=== PATIENT | female | born 1950 | race Caucasian/White ===

== ENCOUNTER 2016-05-30 14:21 | Emergency (ER) | payer MEDICARE, OTHER ==
[2016-05-30 14:39] VITALS: BP 113/59
--- NOTE | 2016-05-30 15:07 | UC ---
Palpitation/Dysrhythmia HP - HPI Summary HPI Summary: The patient comes in today for: 1. Palpitations "my heart has been skipping beats," "I feel little weak and weary." She does not feel or think that her weakness and "weariness" is worse during the times that she feels her heart skip a beat. She states that her heartbeat will skip a beat and then go back to a normal regular beating. Onset: 1-2 weeks Palliative/provocative: When she is "up and busy" her skipped beats are "not as much." But, she wonders if she is just more mentally distracted at that time. Quality: skipping of heart Region: CVS Severity: 0/10 Time: "On and off all day." Associated symptoms: Previous evaluation: None. Treatment: None Heart disease or previous symptoms: None. She has a history of anxiety attacks. During her "skipped beats" she denies any near-syncope, chest pain, or shortness of breath. * - History of Current Complaint Chief Complaint: UCGeneralIllness Stated Complaint: IRREGULAR HEARTBEAT Time Seen by Provider: 05/30/16 14:59 Hx Obtained From: Patient Hx Last Menstrual Period: "years ago." ?: No - Allergy/Home Medications Allergies/Adverse Reactions: Allergies Allergy/AdvReac Type Severity Reaction Status Date / Time Cephalexin [From Keflex] Allergy Severe Headache Verified 05/30/16 14:40 Sulfa Drugs Allergy Severe Rash Verified 05/30/16 14:40 Tetracycline Allergy Severe Hives Verified 05/30/16 14:40 benadryl topical Allergy Severe Blisters Uncoded 05/30/16 14:40 PMH/Surg Hx/FS Hx/Imm Hx Previously Healthy: No - Restless leg syndrome, Night terrors, Endocrine History Of: Denies: Diabetes, Thyroid Disease, Hyperthyroidism, Hypothyroidism, Dyslipidemia Cardiovascular History Of: Denies: Cardiac Disorders, Hypertension, Pacemaker/ICD, Myocardial Infarction , Congestive Heart Failure, Atrial Fibrillation, Deep Vein Thrombosis, Bleeding Disorders Respiratory History Of: Denies: COPD, Asthma, Bronchitis, Pneumonia, Pulmonary Embolism GI/ History Of: Reports: Gall Bladder Disease - Cholecystectomy 2010, Kidney Stones - BILAT Denies: Gastroesophageal Reflux, Ulcer, Gastrointestinal Bleed, Diverticulitis, Renal Disease, Urosepsis Neurological History Of: Denies: TIA, CVA, Dementia, Seizures, Migraine Psychological History Of: Reports: Anxiety, Depression Denies: Bipolar Disorder, Schizophrenia, Post Traumatic Stress Disorder Cancer History Of: Denies: Lung Cancer, Colorectal Cancer, Breast Cancer, Prostate Cancer, Cervical Cancer Other History Of: Anticoagulant Therapy - She is on aspirin daily. Negative For: HIV, Hepatitis B, Hepatitis C - Surgical History Surgical History: Yes Surgery Procedure, Year, and Place: r shoulder reconstruction 40 years ago. hysterectomy 1999. cholecystectomy 5 years ago - Family History Known Family History: Positive: Cardiac Disease - Father of [place] 72., Hypertension Negative: Diabetes - Social History Occupation: Retired Alcohol Use: None Substance Use Type: None Smoking Status (MU): Current Every Day Smoker Type: Cigarettes Amount Used/How Often: 1/2 - 1PPD - Immunization History Most Recent Influenza Vaccination: 2015 Most Recent Tetanus Shot: Unknown Most Recent Pneumonia Vaccination: 2014 Review of Systems Constitutional: Negative Skin: Negative Eyes: Negative ENT: Negative Respiratory: Negative Cardiovascular: Negative Gastrointestinal: Negative Genitourinary: Negative All Other Systems Reviewed And Are Negative: Yes Physical Exam Triage Information Reviewed: Yes Appearance: Well-Appearing, No Pain Distress, Well-Nourished, Other: - She is anxious-appearing with furrowed brow and slight pressured speech. Vital Signs: Initial Vital Signs Temp 97.8 F 05/30/16 14:35 Pulse 79 05/30/16 14:35 Resp 20 05/30/16 14:35 BP 113/59 05/30/16 14:35 Pulse Ox 97 05/30/16 14:35 Vital Signs Reviewed: Yes Eyes: Positive: Conjunctiva Clear. Negative: Discharge ENT: Positive: Hearing grossly normal. Negative: Pharyngeal erythema, Nasal congestion, Nasal drainage, TM bulging, TM dull, TM red, Tonsillar swelling, Tonsillar exudate Dental: Negative: Gross Decay/Caries @, Dental Fracture @ Neck: Positive: Supple, Nontender, No Lymphadenopathy, Other: - No thyromegally or nodules.. Negative: Nuchal Rigidity Respiratory: Positive: Chest non-tender, Lungs clear, No respiratory distress, No accessory muscle use. Negative: Rhonchi, Wheezing Cardiovascular: Positive: RRR, No Murmur Abdomen Description: Positive: Nontender, No Organomegaly, Soft. Negative: Distended, Guarding Musculoskeletal: Positive: Strength Intact, ROM Intact, No Edema Neurological: Positive: Alert, Muscle Tone Normal Psychological: Negative: Age Appropriate Behavior, Consolable Skin: Negative: rashes, breakdown Diagnostics - Laboratory Diagnostic Studies Completed/Ordered: EKG: Rate: Rhythm: Ectopy: None. Acute changes: None Palpitations Course/Dx - Course Course Of Treatment: Patient was told that I found no obvious problems that may be causing her skipped beats. From her description of a premature beat and a compensatory pause, she was told that she probably is having isolated PVC's. She was told that having isolated PVC's don't necessarily mean that there is any heart problem such as CAD. But, they can be a sign of such. She was told that we can't make the distinction here at the urgent care--she is goign to have to have a cardiac work up. She was told that it is reassuring that she is not having the skipped beats along with chest pain, dypsnea or near-syncope. However, her age and smoking are definite risk factors for heart disease and for this reason, I'll be referring her to a leave manager for evaluation. - Differential Dx/Diagnosis Differential Diagnosis/HQI/PQRI: Panic Disorder, Other Provider Diagnoses: Isolated PVC's/palpitations. Discharge - Discharge Plan Condition: Stable Disposition: HOME Patient Education Materials: Palpitations (ED) Referrals: Peggy Santana MD [Primary Care Provider] - As Soon As Possible Leandro Eng MD [Medical Doctor] - As Soon As Possible (Please call Dr. Vinnie Eng's office as soon as you can for an evaluation as soon as you can for palpitations. If you get worse please go to the ER.) Additional Instructions: If you have a change in your skipped beats such as a run of them, or skipped beats along with chest pain, or shortness of breath, or feeling like you are going to faint or if your weariness or fatigue get worse with them, please go directly to the ER.
== END 2016-05-30 15:52 | disposition home or self-care (01) ==
LOC: UCEAST 14:21
DX: I49.3 Ventricular premature depolarization (principal); R00.2 Palpitations; Z79.82 Long term (current) use of aspirin; Z90.49 Acquired absence of other specified parts of digestive tract; Z88.1 Allergy status to other antibiotic agents; Z88.2 Allergy status to sulfonamides; F17.210 Nicotine dependence, cigarettes, uncomplicated
CPT/HCPCS: 93005; 99211; G0463

== ENCOUNTER 2018-08-14 19:07 | Emergency (ER) | payer MEDICARE ==
[2018-08-14 19:36] VITALS: BP 140/88
--- NOTE | 2018-08-14 20:00 | UC ---
Skin Complaint HPI - HPI Summary HPI Summary: NOTICED TICK ATTACHED TO HER RIGHT AC TODAY. THINKS IT MUST HAVE ATTACHED SOMETIME IN THE LAST 24 HOURS. - History of Current Complaint Chief Complaint: UCGeneralIllness Time Seen by Provider: 08/14/18 19:37 Stated Complaint: TICK Hx Obtained From: Patient Hx Last Menstrual Period: "years ago." Onset/Duration: Lasting Hours, Still Present Timing: Constant Onset Severity: Mild Current Severity: Mild Pain Intensity: 0 Pain Scale Used: 0-10 Numeric Location: Discrete - RIGHT AC FOSSA Character: Redness Aggravating Factor(s): Touch Alleviating Factor(s): Nothing Associated Signs & Symptoms: Positive: Negative Related History: Insect Bite/Sting - Allergy/Home Medications Allergies/Adverse Reactions: Allergies Allergy/AdvReac Type Severity Reaction Status Date / Time cephalexin Allergy Severe Headache Verified 08/14/18 19:33 Sulfa (Sulfonamide Allergy Rash Verified 08/14/18 19:33 Antibiotics) tetracycline Allergy Hives Verified 08/14/18 19:33 benadryl topical Allergy Severe Blisters Uncoded 05/30/16 14:40 PMH/Surg Hx/FS Hx/Imm Hx Respiratory History: COPD Other History Of: Anticoagulant Therapy - She is on aspirin daily. Negative For: HIV, Hepatitis B, Hepatitis C - Surgical History Surgical History: Yes Surgery Procedure, Year, and Place: r shoulder reconstruction. hysterectomy 1999. cholecystectomy. tubal - Family History Known Family History: Positive: Cardiac Disease - Father of [place] 72., Hypertension Negative: Diabetes - Social History Alcohol Use: None Substance Use Type: None Smoking Status (MU): Current Every Day Smoker Type: Cigarettes Amount Used/How Often: 1/2 - 1PPD - Immunization History Most Recent Influenza Vaccination: 2016 Most Recent Tetanus Shot: Unknown Most Recent Pneumonia Vaccination: 2015 Review of Systems All Other Systems Reviewed And Are Negative: Yes Constitutional: Positive: Negative Skin: Positive: Other - TICK ATTACHED RIGHT AC FOSSA Respiratory: Positive: Negative Cardiovascular: Positive: Negative Gastrointestinal: Positive: Negative Physical Exam Triage Information Reviewed: Yes Appearance: Well-Appearing, No Pain Distress, Well-Nourished Vital Signs: Initial Vital Signs Temp 100.4 F 08/14/18 19:34 Pulse 87 08/14/18 19:34 Resp 18 08/14/18 19:34 BP 140/88 08/14/18 19:34 Pulse Ox 95 08/14/18 19:34 Vital Signs Reviewed: Yes Eyes: Positive: Conjunctiva Clear ENT: Positive: Hearing grossly normal, TMs normal Neck: Positive: Supple Respiratory: Positive: No respiratory distress, No accessory muscle use Cardiovascular: Positive: Pulses Normal Abdomen Description: Positive: Soft Musculoskeletal: Positive: No Edema Neurological: Positive: Alert Psychological: Positive: Age Appropriate Behavior Skin: Positive: Other - TICK ATTACHED RIGHT AC FOSSA. NOT ENGORGED. Course/Dx - Course Course Of Treatment: TICK REMOVED IN ENTIRETY USING TICK TWISTER. COUNSELED PT EXTENSIVELY ON LOW RISK OF AGATHA LYME DISEASE FROM THIS TICK. TICK WAS NOT ENGORGED SO UNLIKELY TO HAVE BEEN ATTACHED FOR REQUISITE AMOUNT OF TIME TO TRANSMIT DISEASE. USE TICK TWISTER TO HELP REMOVE ANY FUTURE TICKS. KEEP THE AREA CLEAN AND BE VIGILANT OF SX OVER THE NEXT 4-6 WEEKS. PT DOES NOT MEET CRITERIA FOR PROPHYLAXIS WITH DOXY. ALL QUESTIONS ANSWERED AND PT COMFORTABLE WITH CAREFUL OBSERVATION AT HOME. - Diagnoses Provider Diagnosis: Tick bite Discharge - Sign-Out/Discharge Documenting (check all that apply): Patient Departure All imaging exams completed and their final reports reviewed: No Studies - Discharge Plan Condition: Stable Disposition: HOME Patient Education Materials: Tick Bite (ED) Referrals: Peggy Santana MD [Primary Care Provider] - If Needed Additional Instructions: The Infectious Disease Society of [place] (IDSA) does not generally recommend antimicrobial prophylaxis for prevention of Lyme disease after a recognized tick bite. However, in areas that are highly endemic for Lyme disease, a single dose of doxycycline may be offered to adult patients (200 mg) who are not and to children older than 8 years of age (4 mg/kg up to a maximum dose of 200 mg) when all of the following circumstances exist: CRITERIA FOR RECEIVING PROPHYLACTIC TREATMENT FOR LYME DISEASE 1) TICK ATTACHED FOR AT LEAST 36 HRS 2) TICK IS AN ADULT OR [place] DEER TICK 3) YOU LIVE IN AN AREA WHERE LYME DISEASE IS PREVALENT (i.e., [place], [place], [place], , [place] , [place], [place], [place], [place], [place], [place], [place], [place], [place]) 4) YOU HAVE NO CONTRAINDICATION TO THE MEDICATION (DOXYCYCLINE) 5) PROPHYLAXIS IS BEGUN WITHIN 72 HRS OF TICK REMOVAL SINCE YOU DO NOT MEET ALL THESE CRITERIA THERE IS NO NEED TO GIVE YOU PROPHYLACTIC ANTIBIOTICS. YOUR CHANCES OF DEVELOPING LYME DISEASE FROM THIS TICK ARE EXTREMELY SMALL. HOWEVER, 1 TICK MEANS THERE MAY HAVE BEEN OTHER TICKS OF WHICH YOU WEREN'T AWARE. SO BE VIGILANT OF YOUR SYMPTOMS AND DON'T HESITATE TO GET SEEN AGAIN IF YOU DEVELOP UNEXPLAINED FEVER, HEADACHE, JOINT PAIN, BODY ACHES, RASH OR ANY OTHER CONCERNING SYMPTOMS. Antibiotic treatment following a tick bite is not recommended as a means to prevent anaplasmosis, babesiosis, ehrlichiosis, or Ponder spotted fever. There is no evidence this practice is effective, and it may simply delay onset of disease. Instead, persons who experience a tick bite should be alert for symptoms suggestive of tickborne illness and consult a physician if fever, rash, headache or other symptoms of concern develop. - Billing Disposition and Condition Condition: STABLE Disposition: Home
== END 2018-08-14 20:09 | disposition home or self-care (01) ==
LOC: UCEAST 19:07
DX: T63.481A Toxic effect of venom of other arthropod, accidental (unintentional), initial encounter (principal); Z88.1 Allergy status to other antibiotic agents; Z88.2 Allergy status to sulfonamides; F17.210 Nicotine dependence, cigarettes, uncomplicated
CPT/HCPCS: 99211; G0463

== ENCOUNTER 2019-02-20 13:12 | Emergency (ER) | payer MEDICARE ==
[2019-02-20 13:47] VITALS: BP 153/93
--- NOTE | 2019-02-20 15:01 | UC ---
Throat Pain/Nasal Clay HPI - HPI Summary HPI Summary: 68-year-old woman comes in with chief complaint of 2 weeks of upper respiratory tract infection symptoms. She initially had some rhinorrhea sore throat and lost her voice and now it's moved down into her chest. Overnight she was having painful coughing and brought up yellow sputum. She does have COPD. She has an albuterol inhaler which she does not use Coumadin she is afraid that'll make her heart races last time she uses couple months ago it made her heart race. Denies any wheezing. Patient is not worried about having a heart attack she believes the pain is due to infection. No edema no calf tenderness. - History of Current Complaint Chief Complaint: UCGeneralIllness Stated Complaint: HEAD/CHEST CONGESTION Time Seen by Provider: 02/20/19 14:40 Hx Last Menstrual Period: "years ago." Pain Intensity: 0 - Allergies/Home Medications Allergies/Adverse Reactions: Allergies Allergy/AdvReac Type Severity Reaction Status Date / Time cephalexin Allergy Severe Headache Verified 08/14/18 19:33 Sulfa (Sulfonamide Allergy Rash Verified 08/14/18 19:33 Antibiotics) tetracycline Allergy Hives Verified 08/14/18 19:33 benadryl topical Allergy Severe Blisters Uncoded 05/30/16 14:40 PMH/Surg Hx/FS Hx/Imm Hx Previously Healthy: Yes Psychological History: Anxiety Other History Of: Anticoagulant Therapy - She is on aspirin daily. Negative For: HIV, Hepatitis B, Hepatitis C - Surgical History Surgical History: Yes Surgery Procedure, Year, and Place: r shoulder reconstruction. hysterectomy 1999. cholecystectomy. tubal - Family History Known Family History: Positive: Cardiac Disease - Father of [place] 72., Hypertension Negative: Diabetes - Social History Alcohol Use: None Substance Use Type: None Smoking Status (MU): Current Every Day Smoker Type: Cigarettes Amount Used/How Often: 1/2 - 1PPD - Immunization History Most Recent Influenza Vaccination: 2016 Most Recent Tetanus Shot: Unknown Most Recent Pneumonia Vaccination: 2015 Review of Systems All Other Systems Reviewed And Are Negative: Yes Constitutional: Positive: Other - see hpi Skin: Positive: Negative Eyes: Positive: Negative ENT: Positive: Sore Throat, Nasal Discharge, Sinus Congestion, Sinus Pain/ Tenderness Respiratory: Positive: Shortness Of Breath, Cough, Other - see hpi Cardiovascular: Positive: Other - see hpi Gastrointestinal: Positive: Negative Motor: Positive: Negative Neurovascular: Positive: Negative Musculoskeletal: Positive: Negative Neurological: Positive: Negative Psychological: Positive: Negative Is Patient Immunocompromised?: No Physical Exam Triage Information Reviewed: Yes Appearance: Well-Appearing, No Pain Distress, Well-Nourished Vital Signs: Initial Vital Signs Temp 98.7 F 02/20/19 13:42 Pulse 92 02/20/19 13:42 Resp 18 02/20/19 13:42 BP 153/93 02/20/19 13:42 Pulse Ox 97 02/20/19 13:42 Vital Signs Reviewed: Yes Eye Exam: Normal Eyes: Positive: Conjunctiva Clear ENT: Positive: Pharyngeal erythema, Nasal congestion, TMs normal, Sinus tenderness Neck: Positive: Supple Respiratory: Positive: No respiratory distress, Rhonchi Cardiovascular: Positive: RRR Musculoskeletal: Positive: Strength Intact, ROM Intact, No Edema - no calf tenderness Neurological: Positive: Alert, Muscle Tone Normal Psychological: Positive: Age Appropriate Behavior Skin Exam: Normal Throat Pain/Nasal Course/Dx - Course Course Of Treatment: Antiquer: Dell Caba C ([id number]) Asbestos Worker Helper: JESSICA ( HENOKANCE) Report Date: 02/20/2019 15:14:00 Report Status: Final ====== Start of Report Content Patient Name: JAVON MOORE Medical Record#: [id number] Ordering Physician: Mikhail Sherwood MD Acct.#: [id number] : 1950 Age: 68 Sex: F Location: [facility] Exam Date: 02/20/19 1449 ADM Status: REG ER Order Information: CHEST PA LAT 2 VWS Accession Number: [id number] CPT: 23664 INDICATION: Cough, congestion. COPD. COMPARISON: May 30, 2018 CT. TECHNIQUE: Dual energy PA and lateral views of the chest were obtained. REPORT: Small RIGHT posterior fat-containing diaphragmatic hernia. Elevated lung volumes and mild prominence of the interstitial markings. No focal pulmonary lesion, compelling alveolar consolidation, pleural effusion, pneumothorax. The heart, pulmonary vasculature, and mediastinal contours are unremarkable. Gallbladder fossa level surgical clips. No suspicious abnormality of the osseous structures. IMPRESSION: #. Stigmata of obstructive lung disease. No acute pulmonary or cardiac process evident. <Electronically signed by Dell Caba MD in OV> 1510 Dictated By: Dell Caba MD Dictated Date/Time: 02/20/19 1505 Transcribed Date/Time: 02/20/19 1505 Copy to: CC:Xochitl Mabry TOWBOAT OPERATOR; Mikhail Sherwood MD Imaging - [facility] Imaging - [facility] Imaging - [facility] [address] [place] [address] [address] [address] ph [phone]) ph ) ph ([phone]) End of Report Content ======== Discussed x-ray with patient. Rx Azithromycin for >10days of Sx and worsening. F /U PMD; reevaluate sooner if worse of not improving. - Differential Dx/Diagnosis Provider Diagnosis: Bronchitis Discharge ED - Sign-Out/Discharge Documenting (check all that apply): Patient Departure All imaging exams completed and their final reports reviewed: Yes - Discharge Plan Condition: Stable Disposition: HOME Prescriptions: Azithromyxin MIKE (NF) [Z-Mike (Zithromax) 250 mg tabs #6] 2 tab PO .TODAY, THEN 1 DAILY #6 tab Patient Education Materials: Acute Bronchitis (ED) Referrals: Xochitl Mabry, TOWBOAT OPERATOR [Primary Care Provider] - Additional Instructions: FOLLOW UP WITH YOUR DOCTOR IF NOT COMPLETELY IMPROVED. GET REEVALUATED SOONER IF NOT IMPROVED OR WORSE OR ANY QUESTIONS OR CONCERNS. - Billing Disposition and Condition Condition: STABLE Disposition: Home
== END 2019-02-20 16:00 | disposition home or self-care (01) ==
LOC: UCEAST 13:12
DX: J40 Bronchitis, not specified as acute or chronic (principal); J02.9 Acute pharyngitis, unspecified; F17.210 Nicotine dependence, cigarettes, uncomplicated; Z79.82 Long term (current) use of aspirin; Z88.1 Allergy status to other antibiotic agents; Z88.2 Allergy status to sulfonamides; Z88.8 Allergy status to other drugs, medicaments and biological substances
CPT/HCPCS: 71046; 99212; G0463

== ENCOUNTER 2019-04-24 11:02 | Emergency (ER) | payer MEDICARE ==
--- OUTSIDE RECORDS SUMMARY | 2019-04-24 11:09 | XMS REPORT | Continuity of Care Document ---
:1950 External Reference #:[id number] Author Name Steff Crockett MD Address [address] [place] [address] Problems Active Problems Provider Date Chronic obstructive lung disease Onset: 11/02/2018 Screening for malignant neoplasm of respiratory tract Onset: 02/14/2017 Mild chronic obstructive pulmonary disease Onset: 02/14/2016 Calculus of kidney and ureter Onset: 11/07/2015 Osteopenia Onset: 12/24/2014 Social History Type Date Description Comments Sex Unknown Tobacco Use Start: Unknown Light tobacco smoker (10 or fewer cigarettes/day) Smoking Status Reviewed: 04/08/19 Light tobacco smoker (10 or fewer cigarettes/day) Allergies, Adverse Reactions, Alerts Active Allergies Reaction Severity Comments Date Reactions To Sulfa, Tetracycline Allergic urticaria 11/09/2018 Sulfa Drugs No Reaction Indicated 11/09/2018 Tetracycline No Reaction Indicated 11/09/2018 Keflex 04/08/2019 Medications Active Medications SIG Qnty Indications Ordering Date Provider Spiriva Respimat 2 daily 30units Unknown 11/02/2018 Inhalation 2.5mcg/Act Aerosol Aerochamber MV 1 N/A 1units Unknown 08/21/2018 Misc Ventolin HFA 2 every 4 hours 1units Unknown 08/21/2018 Inhalation 108(90Base) mcg/Act Aerosol Citalopram oral; take 1 90tabs Steff Crockett, 07/10/2018 Hydrobromide tablet by mouth MD 20mg every day Tablets Clonazepam take 1 tablet by 60tabs Steff Crockett, 03/20/2018 1mg mouth twice a day MD Tablets if needed Immunizations CPT Code Status Date Vaccine Lot # [id number] Given 02/02/2017 Influenza Virus Vaccine, Quadrivalent, Split, Im Use 0.25ML 97671 Given 02/02/2017 Influenza Virus Vaccine, Quadrivalent, Split, Im Use 0.25ML 32204 Given 02/02/2017 Influenza Virus Vaccine, Quadrivalent, Split, Im Use 0.25ML 20955 Given 02/02/2017 Flu < 65 years 00630 Given 02/02/2017 Influenza Virus Vaccine, Quadrivalent, Split, Preservative Free 04639 Given 02/02/2017 Flumist 06090 Given 02/02/2017 Flu High Dose 02623 Given 02/02/2017 Influenza Virus Vaccine, Split, Preserv Free, Intradermal Use 28329 Given 02/08/2016 Influenza Virus Vaccine, Split, Preserv Free, Intradermal Use 07867 Given 02/08/2016 Flu High Dose 55048 Given 02/08/2016 Flumist 91126 Given 02/08/2016 Influenza Virus Vaccine, Quadrivalent, Split, Preservative Free 38595 Given 02/08/2016 Flu < 65 years 16481 Given 02/08/2016 Influenza Virus Vaccine, Quadrivalent, Split, Im Use 0.25ML 06190 Given 02/08/2016 Influenza Virus Vaccine, Quadrivalent, Split, Im Use 0.25ML 29159 Given 02/08/2016 Influenza Virus Vaccine, Quadrivalent, Split, Im Use 0.25ML 27179 Given 02/08/2016 Pneumovax - for >=2years - PPSV23 41899 Given 12/24/2014 Flu High Dose 20511 Given 12/24/2014 Prevnar 13 77736 Given 12/24/2014 Flumist 71890 Given 12/24/2014 Influenza Virus Vaccine, Quadrivalent, Split, Preservative Free 29019 Given 12/24/2014 Flu < 65 years 72704 Given 12/24/2014 Influenza Virus Vaccine, Quadrivalent, Split Virus, Im Use 0.5ML 20221 Given 12/04/2013 Influenza Virus Vaccine, Quadrivalent, Split Virus, Im Use 0.5ML 19015 Given 12/04/2013 Flu < 65 years 83417 Given 12/04/2013 Influenza Virus Vaccine, Quadrivalent, Split, Preservative Free 62571 Given 12/04/2013 Flumist 00398 Given 12/04/2013 Flu High Dose 58159 Given 07/17/2012 Tdap - Boostrix/Adacel 23039 Given 12/05/2011 Pneumovax - for >=2years - PPSV23 35793 Given 12/27/2010 Influenza Virus Vaccine, Quadrivalent, Split, Im Use 0.25ML 22232 Given 12/27/2010 Influenza Virus Vaccine, Quadrivalent, Split, Im Use 0.25ML 51856 Given 12/27/2010 Influenza Virus Vaccine, Quadrivalent, Split, Im Use 0.25ML 39869 Given 12/27/2010 Flu < 65 years 60037 Given 12/27/2010 Influenza Virus Vaccine, Quadrivalent, Split, Preservative Free 37573 Given 12/27/2010 Flumist 47285 Given 12/27/2010 Flu High Dose Vital Signs Date Vital Result Comment 04/08/2019 2:02pm BP Systolic 122 mmHg BP Diastolic 76 mmHg Height 59.75 inches 4'11.75" Weight 185.00 lb Heart Rate 71 /min Body Temperature 96.7 F O2 % BldC Oximetry 99 % BMI (Body Mass Index) 36.4 kg/m2 11/02/2018 11:09am BP Systolic 104 mmHg Heart Rate 84 /min Body Temperature 97.6 F O2 % BldC Oximetry 96 % Results Test Acquired Date Facility Test Result H/L Range Note Xray 04/08/2019 [facility] Bilat Mammo <pending> [address] [place] [address] [phone] Procedures Description No Information Available Medical Devices Description No Information Available Encounters Type Date Location Provider Dx Diagnosis Office Visit 04/08/2019 1:45p [facility] Steff Crockett MD R06.02 Shortness of breath F32.89 Other specified depressive episodes F41.9 Anxiety disorder, unspecified F17.200 Nicotine dependence, unspecified, uncomplicated Assessments Date Code Description Provider 04/08/2019 R06.02 Shortness of breath Steff Crockett MD 04/08/2019 F32.89 Other specified depressive episodes Steff Crockett MD 04/08/2019 F41.9 Anxiety disorder, unspecified Steff Crockett MD 04/08/2019 F17.200 Nicotine dependence, unspecified, uncomplicated Steff Crockett MD Plan of Treatment Future Appointment(s):10/11/2019 1:15 pm - Steff Crockett MD at [facility] Main2019 - Steff [place], MDR06.02 Shortness of scwgutF14.89 Other specified depressive [id number] Anxiety disorder, [id number] Nicotine dependence, unspecified, uncomplicated Functional Status Description No Information Available Mental Status Description No Information Available Referrals Description No Information Available
[2019-04-24 11:13] VITALS: BP 120/85
--- NOTE | 2019-04-24 11:16 | UC ---
Skin Complaint HPI - HPI Summary HPI Summary: Patient presents to urgent care with hives that developed on Monday night. Patient states her legs or abdomen or back. Patient states are very itchy. Patient denies any trouble breathing or any trouble swallowing. Patient has had problems with hives intermittently over the last several years without a clear cause. Patient has never had a emergency department and received to receive an EpiPen. Patient denies any new products. No new foods or lotions no use chemicals. Patient states she has had problems with topical Benadryl causing hives to be worse she has not taken any orally. Patient does not call primary care doctor. Patient denies any recent. Patient's medications are entered in the EMR by triage reviewed this visit. - History of Current Complaint Chief Complaint: UCRash Time Seen by Provider: 04/24/19 11:09 Stated Complaint: HIVES Hx Obtained From: Patient Hx Last Menstrual Period: "years ago." Pain Intensity: 7 - Allergy/Home Medications Allergies/Adverse Reactions: Allergies Allergy/AdvReac Type Severity Reaction Status Date / Time cephalexin Allergy Severe Headache Verified 04/24/19 11:13 Sulfa (Sulfonamide Allergy Rash Verified 04/24/19 11:13 Antibiotics) tetracycline Allergy Hives Verified 04/24/19 11:13 benadryl topical Allergy Severe Blisters Uncoded 04/24/19 11:13 PMH/Surg Hx/FS Hx/Imm Hx Previously Healthy: Yes Other History Of: Anticoagulant Therapy - She is on aspirin daily. Negative For: HIV, Hepatitis B, Hepatitis C - Surgical History Surgical History: Yes Surgery Procedure, Year, and Place: r shoulder reconstruction. hysterectomy 1999. cholecystectomy. tubal - Family History Known Family History: Positive: Cardiac Disease - Father of [place] 72., Hypertension, Non-Contributory Negative: Diabetes - Social History Occupation: Retired Lives: With Family Alcohol Use: Rare Substance Use Type: None Smoking Status (MU): Light Every Day Tobacco Smoker Type: Cigarettes Amount Used/How Often: 1/2 - 1PPD - Immunization History Most Recent Influenza Vaccination: 2016 Most Recent Tetanus Shot: Unknown Most Recent Pneumonia Vaccination: 2014 Review of Systems All Other Systems Reviewed And Are Negative: Yes Constitutional: Positive: Negative Skin: Positive: Rash Eyes: Positive: Negative ENT: Positive: Negative Respiratory: Positive: Negative Cardiovascular: Positive: Negative Gastrointestinal: Positive: Negative Genitourinary: Positive: Negative Physical Exam - Summary Physical Exam Summary: Vital Signs Reviewed: Yes A+Ox3, no distress Eyes: Conjunctiva Clear, GHASSAN. EOM intact and full ENT: Hearing grossly normal TM x 2 clear, no intraoral edema mmoist, uvula midline, no exudate, no erythema, no diffculty with speech or swallowing Neck: Positive: Supple Respiratory: Positive: No respiratory distress, No accessory muscle use + CTA throughout no w/r, no wheeze, no difficulty breathing Cardiovascular: RRR nl s1, s2 no m/r CBT <2 sec abd soft + BS nt/nd no guarding, no distension Musculoskeletal Exam: BARON x 4 without difficulty Strength Intact, ROM Intact Neurological: Positive: Alert, + sensation throughout Psychological: Positive: Normal Response To student recruiter Skin: Positive: + scattered urticaria hives to bilateral LE, abdomen, and back Triage Information Reviewed: Yes Vital Signs: Initial Vital Signs Temp 98.3 F 04/24/19 11:08 Pulse 97 04/24/19 11:08 Resp 18 04/24/19 11:08 BP 120/85 04/24/19 11:08 Pulse Ox 95 04/24/19 11:08 Course/Dx - Course Course Of Treatment: Patient presents to urgent care with hives on his lower extremities abdomen low back. Patient states she does not know what the causes and has happened in the past. Patient states she's noticed a cold makes it better but has not taken any medications. Patient without any difficulty swallowing or intraoral edema. On review vital signs are stable. Patient does have urticarial lesions on her lower extremities low back and abdomen. There is evidence of recent scratching. Patient without any airway or respiratory concerns. Will start patient on prednisone taper. Discussed with patient the importance of taking it to completion. We'll also start patient on Pepcid twice a day as she is hesitant to take Benadryl due to her topical reaction. Encouraged patient to follow up with the primary care provider. Discussed with patient strict return precautions. Patient states understanding and agreement. - Diagnoses Provider Diagnosis: Urticarial rash Discharge ED - Sign-Out/Discharge Documenting (check all that apply): Patient Departure All imaging exams completed and their final reports reviewed: No Studies - Discharge Plan Condition: Stable Disposition: HOME Prescriptions: Famotidine TAB* [Pepcid 20 MG TAB*] 20 mg PO DAILY #14 tab predniSONE 20 mg TAB [Deltasone 20 MG TAB*] 20 mg PO DAILY #13 tab Patient Education Materials: Urticaria (ED) Referrals: Xochitl Mabry NP [Primary Care Provider] - Additional Instructions: -Take pepcid as prescribed - 2 times daily for 7 days -Avoid getting over heated (hot showers, hot tubs, exercise) for at least 48 hours - Try to avoid aspirin, NSAIDs (Motrin, Aleve, Naprosyn) for 2-3 days - Okay to apply cool compresses to the area of injury -Contact your doctor to schedule a follow-up appointment. Contact your doctor return here with questions or concerns - Billing Disposition and Condition Condition: STABLE Disposition: Home
== END 2019-04-24 11:42 | disposition home or self-care (01) ==
LOC: UCEAST 11:02
DX: L50.9 Urticaria, unspecified (principal); F17.210 Nicotine dependence, cigarettes, uncomplicated; Z88.1 Allergy status to other antibiotic agents; Z88.2 Allergy status to sulfonamides; Z88.8 Allergy status to other drugs, medicaments and biological substances; Z79.82 Long term (current) use of aspirin
CPT/HCPCS: 99212; G0463

== ENCOUNTER 2019-04-25 14:11 | Emergency (ER) | payer MEDICARE ==
[2019-04-25 15:51] VITALS: BP 133/73
--- NOTE | 2019-04-25 17:10 | UC ---
Skin Complaint HPI - HPI Summary HPI Summary: Patient is a 68yo female presenting with c/l hives intermittently since Monday. The patient states she was seen here yesterday and provided with prednisone and Pepcid. Patient states she is taking medications as directed but approximately 4 hours before presenting in the clinic she had hives reappear on her ears and right side of her face. Patient states she came in because she was told that "if she experiences any throat swelling that she needed to be seen immediately and that her ears seemed way too close to her throat to take a chance. " Patient states they were "burning and itching so badly." States when her hives flareup she has a difficult time sleeping and is "scratching almost to the point of bleeding." The patient states that she has had flares of hives on and off for years without any known cause. Patient states she used topical Benadryl and developed blisters so she refuses to take any Benadryl by mouth. Denies taking anything else or applying anything to skin. Denies new medications, foods, products, and environmental exposures. - History of Current Complaint Chief Complaint: UCSkin Stated Complaint: RECHECK RASH Hx Obtained From: Patient Hx Last Menstrual Period: "years ago." Pain Intensity: 0 Pain Scale Used: 0-10 Numeric - Allergy/Home Medications Allergies/Adverse Reactions: Allergies Allergy/AdvReac Type Severity Reaction Status Date / Time cephalexin Allergy Severe Headache Verified 04/25/19 15:51 Sulfa (Sulfonamide Allergy Rash Verified 04/25/19 15:51 Antibiotics) tetracycline Allergy Hives Verified 04/25/19 15:51 benadryl topical Allergy Severe Blisters Uncoded 04/25/19 15:51 Home Medications: Home Medications Citalopram Hydrobromide [Celexa] 20 mg PO QPM 02/08/12 [History Confirmed ] clonazePAM TAB(*) [Klonopin TAB(*)] 1 mg PO QPM 02/08/12 [History Confirmed ] Famotidine TAB* [Pepcid 20 MG TAB*] 20 mg PO DAILY #14 tab 04/24/19 [Rx] predniSONE 20 mg TAB [Deltasone 20 MG TAB*] 20 mg PO DAILY #13 tab 04/24/19 [Rx] PMH/Surg Hx/FS Hx/Imm Hx Other History Of: Anticoagulant Therapy - She is on aspirin daily. Negative For: HIV, Hepatitis B, Hepatitis C - Surgical History Surgical History: Yes Surgery Procedure, Year, and Place: r shoulder reconstruction. hysterectomy 1999. cholecystectomy. tubal - Family History Known Family History: Positive: Cardiac Disease - Father of [place] 72., Hypertension, Non-Contributory Negative: Diabetes - Social History Alcohol Use: Rare Substance Use Type: None Smoking Status (MU): Light Every Day Tobacco Smoker Type: Cigarettes Amount Used/How Often: 1/2 - 1PPD - Immunization History Most Recent Influenza Vaccination: 2016 Most Recent Tetanus Shot: Unknown Most Recent Pneumonia Vaccination: 2014 Review of Systems All Other Systems Reviewed And Are Negative: Yes Constitutional: Positive: Negative. Negative: Fever, Chills Skin: Positive: Rash - urticaria of ears and face 4 hours ago ENT: Positive: Negative Respiratory: Positive: Negative Cardiovascular: Positive: Negative Musculoskeletal: Positive: Negative Neurological/Mental Status: Positive: Negative Psychological: Positive: Anxious Physical Exam - Summary Physical Exam Summary: Vital Signs Reviewed: Yes A+Ox3, anxious appearing, no pain/respiratory distress Eyes: Conjunctiva Clear ENT: Hearing grossly normal, TM x 2 clear, moist, uvula midline, no exudate, no erythema. no lip, tongue, or throat swelling Neck: Positive: Supple Respiratory: Positive: No respiratory distress, No accessory muscle use + CTA throughout no w/r Cardiovascular: RRR nl s1, s2 no m/r Musculoskeletal Exam: BARON x 4 without difficulty Neurological: Positive: Alert Psychological: Positive: age appropriate behavior, anxious Skin: Positive: no rash/urticarial rash present during exam, multiple carrie scabs along ventral b/l arms from scratching, nonbleeding Vital Signs: Initial Vital Signs Temp 99.3 F 04/25/19 15:43 Pulse 86 04/25/19 15:43 Resp 16 04/25/19 15:43 BP 133/73 04/25/19 15:43 Pulse Ox 96 04/25/19 15:43 Course/Dx - Course Course Of Treatment: Patient without any urticarial rash on exam today. No lip, throat, or tongue swelling. VS normal and lung sounds clear. No stridor. Re-educated patient on urticaria and symptomatic treatment. Further educated patient on hives vs signs of anaphylaxis. Instructed to continue with prednisone and Pepcid as prescribed to her yesterday. Instructed to follow up with PCP or dermatology referral if hives persist or recur. Patient voiced understanding and agreed with the treatment plan. - Diagnoses Provider Diagnosis: Urticaria Discharge ED - Sign-Out/Discharge Documenting (check all that apply): Patient Departure All imaging exams completed and their final reports reviewed: No Studies - Discharge Plan Condition: Stable Disposition: HOME Patient Education Materials: Urticaria (ED) Referrals: Jose Rahman MD [Medical Doctor] - If Needed Additional Instructions: Continue with your prednisone and Pepcid as prescribed. You may apply cold compresses to the areas as needed. Follow up with your primary care doctor or the dermatology referral listed below if symptoms persist. Go to the emergency room if he experiences lip, tongue, or throat swelling, or difficulty breathing. - Billing Disposition and Condition Condition: STABLE Disposition: Home
== END 2019-04-25 16:45 | disposition home or self-care (01) ==
LOC: UCEAST 14:11
DX: L50.9 Urticaria, unspecified (principal); F17.210 Nicotine dependence, cigarettes, uncomplicated; Z88.1 Allergy status to other antibiotic agents; Z88.2 Allergy status to sulfonamides; Z79.82 Long term (current) use of aspirin
CPT/HCPCS: 99211; G0463